=== PATIENT | male | born 1960 | race Caucasian/White ===

== ENCOUNTER 2020-11-16 19:08 | Emergency (ER) | payer BC, OTHER ==
[2020-11-16] MEDS ORDERED: HYDROCODON-ACE1 EAC4 PO (21:14)
[2020-11-16] MEDS ORDERED: LODINE CAP 300300 MG PO (21:19)
[2020-11-16] MEDS ORDERED: CEPHALEXIN500 MG PO (21:19)
== END 2020-11-16 21:38 | disposition home or self-care (01) ==
LOC: ER1 19:08
DX: S61.213A Laceration without foreign body of left middle finger without damage to nail, initial encounter (principal); S61.215A Laceration without foreign body of left ring finger without damage to nail, initial encounter; S67.193A Crushing injury of left middle finger, initial encounter; S67.195A Crushing injury of left ring finger, initial encounter; E78.5 Hyperlipidemia, unspecified; I10 Essential (primary) hypertension; Z23 Encounter for immunization; W26.8XXA Contact with other sharp object(s), not elsewhere classified, initial encounter; Y92.009 Unspecified place in unspecified non-institutional (private) residence as the place of occurrence of the external cause
CPT/HCPCS: 12002; 73130; 90471; 90715; 96372; 99283; J0690